=== PATIENT | female | born 1995 | race African-American/Black ===

== ENCOUNTER 2016-09-11 12:18 | Outpatient (CLI) | payer OTHER ==
[~2016-09-11] VITALS: Ht 157.5 cm; Wt 66.0 kg
[2016-09-11] MEDS ORDERED: PRENTAB9 PO (12:26)
[2016-09-11 12:29] VITALS: BP 129/77
== END 2016-09-11 13:23 | disposition home or self-care (01) ==
LOC: M LDO 12:18
PROVIDERS: ATTEND Obstetrics & Gynecology
DX: O36.8130 Decreased fetal movements, third trimester, not applicable or unspecified (principal); Z3A.38 38 weeks gestation of pregnancy

== ENCOUNTER 2016-09-17 07:52 | Inpatient (IN) | payer OTHER ==
[~2016-09-17] VITALS: Ht 157.5 cm; Wt 65.0 kg
[2016-09-17] VITALS (27 sets, daily range): BP systolic 110–147; BP diastolic 60–84
[~2016-09-17 07:52] MED LIST: PRENTAB9 PO
[2016-09-17] MEDS ORDERED: LR 1,000 ML IV SCH (08:56)
[2016-09-17] MEDS ORDERED: LACTATED RINGER'S 1000 ML IV STA (08:56)
[2016-09-17] MEDS ORDERED: BUTORPHANOL 2 MG/ML INJ (J0595) IV ONE (09:15)
[2016-09-17 09:35] LABS: BASO % 0.2 % (0.0-1.0); EOS % 0.3 % (0.0-3.0); LARGE UNSTAINED CELL # 0.3 K/mm3 (0.0-0.4); LARGE UNSTAINED CELL % 1.9 % (0.0-4.0); LYMPH # 0.8 K/mm3 (1.5-6.5); LYMPH % 5.4 % (24.0-44.0); MEAN CORPUSCULAR HEMOGLOBIN 32.3 pg (27.0-33.0); MEAN CORPUSCULAR HGB CONC 33.6 g/dl (32.0-36.5); MEAN CORPUSCULAR VOLUME 95.9 fl (80.0-96.0); MONO # 0.5 K/mm3 (0.0-0.8); MONO % 3.6 % (0.0-5.0); NEUTROPHILS % 88.6 % (36.0-66.0); PLATELET COUNT, AUTOMATED 185 k/mm3 (150-450); WHITE BLOOD COUNT 14.7 K/mm3 (4.0-10.0)
[2016-09-17] MEDS ORDERED: FENTANYL 2MCG/ML ROPIVACAINE 0.2% NACL 250 ML CADD As Ordered ONE (09:45)
[2016-09-17] MEDS ORDERED: REFRIGERATOR IV KEYS XX PRN (10:30)
[2016-09-17] MEDS ORDERED: ePHEDrine SULFATE 25 MG/5 ML(5MG/ML) SYRINGE IV PRN (10:30)
[2016-09-17] MEDS ORDERED: EPIDURAL/PCA KEYS XX PRN (10:30)
[2016-09-17] MEDS ORDERED: ONDANSETRON 4MG/2ML VIAL (J2405) IV PRN (10:30)
[2016-09-17] MEDS ORDERED: LACTATED RINGER'S 1000 ML IV PRN (10:30)
[2016-09-17] MEDS ORDERED: FENTANYL/ROPIVACAINE/NACL CADD 250 ML EPIDURAL SCH (10:30)
[2016-09-17] MEDS ORDERED: EPIDURAL COMMENT XX SCH (10:30)
[2016-09-17] MEDS ORDERED: NALOXONE INJ 0.4 MG/1 ML VIAL (J2310) IV PRN (10:30)
[2016-09-17] MEDS ORDERED: diphenhydrAMINE INJ 50MG/ML VIAL (J1200) IV PRN (10:30)
[2016-09-17] MEDS ORDERED: OXYTOCIN DRIP 30 UNITS in APPROPRIATE DILUENT 1 EA IV SCH (13:57)
[2016-09-17] MEDS ORDERED: OXYTOCIN 30 UNITS IN 0.9% NaCl 500ML IV BAG (J2590) As Ordered ONE (13:58)
[2016-09-17] MEDS ORDERED: DIBUCAINE 1% OINTMENT 30GM TOP PRN (14:00)
[2016-09-17] MEDS ORDERED: METHYLERGONOVINE MALEATE 0.2 MG TAB PO PRN (14:00)
[2016-09-17] MEDS ORDERED: RHOGAM 300 MCG (1500 IU) INJ (J2790) IM SCH (14:00)
[2016-09-17] MEDS ORDERED: ACETAMINOPHEN 500 MG TAB PO PRN (14:00)
[2016-09-17] MEDS ORDERED: DOCUSATE SODIUM 100 MG CAP PO PRN (14:00)
[2016-09-17] MEDS ORDERED: MEASLES,MUMPS,RUBELLA VACCINE INJ (MMR-II) (90707) SC SCH (14:00)
[2016-09-17] MEDS: IBUPROFEN 800 MG TAB PO PRN (21:17)
[2016-09-18 05:47] VITALS: BP 124/71
[2016-09-18] MEDS: IBUPROFEN 800 MG TAB PO PRN ×2 (06:14→17:34)
[2016-09-18] MEDS: PRENATAL VITAMIN TAB PO SCH (08:23)
[2016-09-18 18:16] VITALS: BP 107/59
[2016-09-19] MEDS: IBUPROFEN 800 MG TAB PO PRN ×2 (02:01→07:39)
[2016-09-19 06:01] VITALS: BP 128/63
[2016-09-19] MEDS: PRENATAL VITAMIN TAB PO SCH (07:38)
[2016-09-19] MEDS ORDERED: ACET50TA PO (08:21)
[2016-09-19] MEDS ORDERED: COLA100C PO (08:21)
[2016-09-19] MEDS ORDERED: IBUP-1114 PO (08:21)
== END 2016-09-19 14:00 | disposition home or self-care (01) | DRG 775 ==
LOC: M LDO 07:52 → M LDI 08:48 → M OBS 17:26
PROVIDERS: ADMIT Advanced Practice Midwife; ATTEND Student in an Organized Health Care Education/Training Program
PROC: 10E0XZZ Delivery of Products of Conception, External Approach (ICD-10-PCS; principal; 2016-09-17)
DX: O80 Encounter for full-term uncomplicated delivery (principal); Z37.0 Single live birth; Z3A.39 39 weeks gestation of pregnancy

== ENCOUNTER 2016-10-24 10:51 | Emergency (ER) | payer OTHER ==
[~2016-10-24] VITALS: Ht 157.5 cm; Wt 56.2 kg
[~2016-10-24 10:51] MED LIST changes: +ACET50TA PO; +COLA100C3 PO; +IBUP-1114 PO
[2016-10-24] MEDS ORDERED: CITRSOL8 PO (12:55)
[2016-10-24 13:09] VITALS: BP 119/75
--- NOTE | 2016-10-24 13:45 | REP ---
KUB ABDOMEN AND PELVIS: KUB film of the abdomen and pelvis is performed. The is no evidence of bowel obstruction. Air is scattered throughout the GI tract. I do not see significantly dilated small bowel loops. No abnormal calcifications are seen. The visualized osseous structures appear unremarkable. IMPRESSION: Unremarkable abdominal series. Signed by Juan Camp MD 10/24/2016 04:44 P
== END 2016-10-24 13:09 | disposition home or self-care (01) ==
LOC: M ED 11:44
DX: K59.00 Constipation, unspecified (principal); Z87.891 Personal history of nicotine dependence

== ENCOUNTER 2017-05-04 09:09 | Emergency (ER) | payer OTHER ==
[~2017-05-04] VITALS: Ht 157.5 cm; Wt 54.4 kg
[2017-05-04 09:09] VITALS: BP 120/72
[~2017-05-04 09:09] MED LIST changes: +CITRSOL8 PO; -COLA100C3 PO; +COLA100C5 PO
[2017-05-04 10:13] LABS: BASO % 0.7 % (0.0-1.0); EOS # 0.1 10^3/uL (0.0-0.50); EOS % 1.3 % (0.0-3.0); IMMATURE GRANULOCYTE % 0.3 % (0-0); LYMPH # 1.3 10^3/uL (1.5-6.5); LYMPH % 22.1 % (24.0-44.0); MEAN CORPUSCULAR HEMOGLOBIN 31.9 pg (27.0-33.0); MEAN CORPUSCULAR HGB CONC 34.6 g/dl (32.0-36.5); MEAN CORPUSCULAR VOLUME 92.3 fl (80.0-96.0); MONO # 0.6 10^3/uL (0.0-0.8); MONO % 9.9 % (0.0-5.0); NEUTROPHILS % 65.7 % (36.0-66.0); PLATELET COUNT, AUTOMATED 277 10^3/uL (150-450); RED CELL DISTRIBUTION WIDTH 11.3 % (11.5-14.5); WHITE BLOOD COUNT 6.1 10^3/uL (4.0-10.0)
[2017-05-04 10:41] LABS: CONTROL LINE HCG INT CTR LINE PRESENT
--- NOTE | 2017-05-04 11:51 | REP ---
PELVIC ULTRASOUND: Real-time sonographic evaluation of the pelvis is performed utilizing transabdominal and endovaginal technique. The bladder measures 5.0 x 4.0 x 7.0 cm. The uterus measures 6.3 x 2.8 x 4.8 cm. The endometrial thickness is 7 mm with intervening mild to moderate endometrial fluid. The right ovary measures 2.5 x 1.4 x 2.2 cm, the left ovary measures 3.2 x 1.8 x 2.8 cm. There is a dominant follicle of the left ovary 1.5 cm in diameter. There is no other evidence of adnexal mass or free fluid. There is no evidence of ovarian torsion with blood flow seen in each ovary with duplex Doppler evaluation, RI right ovary 0.47 and left ovary 0.39. IMPRESSION: Endometrial thickness is 7 mm with mild to moderate intervening endometrial fluid. No adnexal mass or free fluid. No torsion. Signed by Juan Camp MD 05/04/2017 05:34 P
== END 2017-05-04 11:52 | disposition home or self-care (01) ==
LOC: M ED 09:09
DX: N93.8 Other specified abnormal uterine and vaginal bleeding (principal); Z79.3 Long term (current) use of hormonal contraceptives

== ENCOUNTER → 2017-07-01 | Outpatient (REF) | payer OTHER | LOC: M SFHCLERA 15:36 | PROVIDERS: ATTEND Nurse Practitioner Family | DX: Z72.51 High risk heterosexual behavior (principal) ==

== ENCOUNTER 2018-01-13 10:58 | Emergency (ER) | payer OTHER ==
[2018-01-13] MEDS: TETRACAINE 0.5% OPHTH SOLN 4ML OS (11:00)
[2018-01-13] MEDS: GENTAMICIN 0.3% OPHTH SOL 5 ML BTL OS (11:04)
== END 2018-01-13 11:07 | disposition home or self-care (01) ==
LOC: M ED 10:58
DX: H10.32 Unspecified acute conjunctivitis, left eye (principal); S05.02XA Injury of conjunctiva and corneal abrasion without foreign body, left eye, initial encounter; X58.XXXA Exposure to other specified factors, initial encounter; Y92.89 Other specified places as the place of occurrence of the external cause
CPT/HCPCS: 99282

== ENCOUNTER 2018-01-13 14:13 | Emergency (ER) | payer OTHER ==
[2018-01-13] MEDS: TETRACAINE 0.5% OPHTH SOLN 4ML OS ×2 (14:15)
[2018-01-13] MEDS: LISSAMINE GREEN OPHTH 1.5 MG STRIP OS ×2 (14:15)
[2018-01-13] MEDS ORDERED: ISOVUE-370 76% 100ML VIAL (Q9967) As Ordered ×2 (15:00)
[2018-01-13] MEDS: PERCOCET 5MG/325MG TAB PO ×2 (16:53)
[2018-01-13] MEDS ORDERED: LIDOCAINE 1% SDV 5 ML VIAL IM ×2 (17:30)
[2018-01-13] MEDS: LIDOCAINE 1% MDV 20ML VIAL IM ×2 (17:30)
[2018-01-13] MEDS: cefTRIAXone SOD 1 GM VIAL (J0696) IM ×2 (17:45)
[2018-01-13] MEDS: AZITHROMYCIN 250 MG TAB PO ×2 (17:45)
[2018-01-13] MEDS ORDERED: LIDOCAINE 1% MDV 20ML VIAL IM ×2 (17:45)
== END 2018-01-13 18:00 | disposition home or self-care (01) ==
LOC: M ED 14:13
DX: O99.89 Other specified diseases and conditions complicating pregnancy, childbirth and the puerperium (principal); H10.32 Unspecified acute conjunctivitis, left eye; Z3A.00 Weeks of gestation of pregnancy not specified
CPT/HCPCS: Q9967